=== PATIENT | female | born 1945 | race Two or more races ===

== ENCOUNTER 2017-06-20 10:08 | Emergency (ER) | payer MEDICARE, OTHER ==
[~2017-06-20] VITALS: Ht 162.6 cm; Wt 71.7 kg
[2017-06-20] MEDS ORDERED: AMLODIPINE BES2.5 MG ORAL (10:23)
[2017-06-20] MEDS ORDERED: CYCLOBENZAPRINE10 MG ORAL (12:13)
[2017-06-20] MEDS ORDERED: Cyclobenzaprine 10mg Tab ORAL ONE (12:15)
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
[2017-06-20 13:15] VITALS: BP 133/78
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
== END 2017-06-20 13:15 | disposition home or self-care (01) ==
LOC: EMR 11:40
DX: M19.90 Unspecified osteoarthritis, unspecified site (principal); S16.1XXA Strain of muscle, fascia and tendon at neck level, initial encounter; V43.52XA Car driver injured in collision with other type car in traffic accident, initial encounter; Y93.9 Activity, unspecified; Y92.410 Unspecified street and highway as the place of occurrence of the external cause; I10 Essential (primary) hypertension
CPT/HCPCS: 70450; 72125; 99284